=== PATIENT | female | born 1970 | race American Indian/Alaskan Native ===

== ENCOUNTER 2017-06-20 09:24 | Emergency (ER) | payer BC ==
[2017-06-20 09:40] VITALS: O2SAT 98; BMI 32.5
[2017-06-20 10:12] LABS: BASO # 0.02 K/mm3 (0.0-2.0); BASO % 0.4 % (0.0-3.0); EOS # 0.1 (0.0-0.7); EOS % 1.1 % (1.5-5.0); GRAN # 3.45 (1.4-6.5); GRAN % 75.7 % (50.0-68.0); HEMATOCRIT 36.9 % (36.0-48.0); LYMPH # 0.8 (1.2-3.4); LYMPH % 16.7 % (22.0-35.0); MEAN CELL VOLUME 81.3 fl (80.0-105.0); MEAN CORPUSCULAR HEMOGLOBIN 26.2 pg (25.0-35.0); MEAN CORPUSCULAR HGB CONC 32.2 g/dl (31.0-37.0); MEAN PLATELET VOLUME 8.8 fl (7.0-11.0); MONO # 0.3 (0.1-0.6); MONO % 6.1 % (1.0-6.0); RED CELL DISTRIBUTION WIDTH 13.7 % (11.5-14.5); WHITE BLOOD COUNT 4.6 10^3/ul (4.5-11.0)
[2017-06-20 10:24] LABS: ALB/GLOB RATIO 1.2 (1.1-1.8); ALKALINE PHOSPHATASE 51 U/L (38-126); ALT/SGPT 33 U/L (7-56); AST/SGOT 29 U/L (14-36); BILIRUBIN,TOTAL 0.5 mg/dL (0.2-1.3); BLOOD UREA NITROGEN 9 mg/dL (7-21); CALCIUM 9.5 mg/dL (8.4-10.5); CARBON DIOXIDE 31 mmol/L (21-33); CHLORIDE 101 mmol/L (98-107); GFR AFRICAN-AMERICAN > 60; GLUCOSE,RANDOM 114 mg/dL (70-110); POTASSIUM 3.5 mmol/L (3.6-5.0); SODIUM 143 mmol/L (132-148); TOTAL PROTEIN 8.2 g/dL (5.8-8.3)
--- NOTE | 2017-06-20 10:51 | ED PDOC ---
Arrival/HPI - General Chief Complaint: Cough, Cold, Congestion Time Seen by Provider: 06/20/17 09:28 Historian: Patient - History of Present Illness Narrative History of Present Illness (Text): 06/20/17 10:48 47-year-old female presents today with a 4 day history of cough with green- yellow sputum, subjective fevers and chills at home. Sore throat and nasal congestion. Patient denies chest pain or shortness of breath. Patient states she does have some right-sided rib pain only with cough. No medications have been taken for pain at home. She denies any sick contacts at home. She denies abdominal pain. No nausea or vomiting. Denies headaches or dizziness. No other complaints Time/Duration: Other (4 days) Symptom Onset: Gradual Symptom Course: Worsening Quality: Unable to Describe Severity Level: 4 Past Medical History - Provider Review Nursing Documentation Reviewed: Yes - Travel History Have you recently traveled outside [place] w/in the past 3 mons?: No - Infectious Disease Hx of Infectious Diseases: None - Tetanus Immunization Tetanus Immunization: Unknown - Cardiac Hx Cardiac Disorders: Yes Hx Hypertension: Yes - Pulmonary Hx Respiratory Disorders: No - Neurological Hx Neurological Disorder: No - HEENT Hx HEENT Disorder: No - Renal Hx Renal Disorder: No - Endocrine/Metabolic Hx Endocrine Disorders: Yes Hx Diabetes Mellitus Type 2: Yes - Hematological/Oncological Hx Blood Disorders: No - Integumentary Hx Dermatological Disorder: No - Musculoskeletal/Rheumatological Hx Musculoskeletal Disorders: No Hx Falls: No - Gastrointestinal Hx Gastrointestinal Disorders: No - Genitourinary/Gynecological Hx Genitourinary Disorders: No - Psychiatric Hx Psychophysiologic Disorder: No Hx Depression: No Hx Emotional Abuse: No Hx Physical Abuse: No Hx Substance Use: No - Surgical History Other/Comment: uterine fibroid removal - Anesthesia Hx Anesthesia: No - Suicidal Assessment Feels Threatened In Home Enviroment: No Family/Social History - Physician Review Nursing Documentation Reviewed: Yes Family/Social History: Unknown Family HX Smoking Status: Never Smoked Hx Alcohol Use: No Hx Substance Use: No Allergies/Home Meds Allergies/Adverse Reactions: Allergies No Known Allergies Allergy (Verified 11/20/12 11:32) Home Medications: Home Meds Medication Instructions Recorded Confirmed Amlodipine Besylate [Norvasc] 10 mg PO DAILY 11/20/12 01/15/17 Metoprolol Tartrate 100 mg PO BID 11/20/12 01/15/17 hydroCHLOROthiazide [Microzide] 12.5 mg PO DAILY 02/12/14 01/15/17 Aspirin [Aspirin Chewable] 81 mg PO DAILY 01/15/17 01/15/17 MetFORMIN [glucoPHAGE] 1,000 mg PO BID 01/15/17 01/15/17 glyBURIDE [Micronase] 5 mg PO BID 01/15/17 01/15/17 Review of Systems - Review of Systems Constitutional: Fatigue, Fevers ENT: Sore Throat, Sinus Congestion Respiratory: Sputum. absent: SOB, Cough Cardiovascular: absent: Chest Pain, Palpitations Gastrointestinal: absent: Abdominal Pain, Nausea, Vomiting Genitourinary Female: absent: Dysuria Musculoskeletal: absent: Arthralgias Skin: absent: Rash, Pruritis Neurological: absent: Headache, Dizziness Psychiatric: absent: Anxiety, Depression, Suicidal Ideation Physical Exam Vital Signs Reviewed: Yes Vital Signs Temp Pulse Resp BP Pulse Ox 06/20/17 15:50 65 18 145/69 98 06/20/17 14:16 67 18 148/71 98 06/20/17 12:41 98.7 F 69 18 155/69 H 98 06/20/17 11:04 75 18 158/71 H 98 06/20/17 09:31 100.0 F H 88 20 164/76 H 98 Temperature: Febrile Blood Pressure: Hypertensive Pulse: Regular Respiratory Rate: Normal Appearance: Positive for: Well-Appearing, Non-Toxic, Comfortable Pain Distress: None Mental Status: Positive for: Alert and Oriented X 3 Finger Stick Blood Glucose: 92 - Systems Exam Head: Present: Atraumatic Conjunctiva: Present: Normal Ears: Present: Normal, NORMAL TM Mouth: Present: Moist Mucous Membranes Pharnyx: Present: Normal. No: ERYTHEMA, EXUDATE Nose (External): Present: Atraumatic Nose (Internal): Present: Normal Inspection Neck: Present: Normal Range of Motion, Trachea Midline. No: Meningeal Signs, Lymphadenopathy Respiratory/Chest: Present: Good Air Exchange, Rhonchi. No: Clear to Auscultation, Respiratory Distress, Accessory Muscle Use, Wheezes, Retracting, Tachypneic, Tender to Palpation Cardiovascular: Present: Regular Rate and Rhythm, Normal S1, S2. No: Murmurs Abdomen: No: Tenderness, Distention, Rebound, Guarding Back: Present: Normal Inspection Upper Extremity: Present: Normal Inspection Lower Extremity: Present: Normal Inspection Neurological: Present: GCS=15, Speech Normal Skin: Present: Warm, Dry, Normal Color. No: Rashes Psychiatric: Present: Alert, Oriented x 3 Medical Decision Making ED Course and Treatment: 06/20/17 10:51 47yr old female with cough, sore throat, nasal congestion and fevers x 4 days. febrile in er; tylenol given for fever reduction cbc; wnl cmp; k; 3.5 rapid flu; negative rapid strep; negative cxr; FINDINGS: LUNGS: There is peribronchial thickening. There is a perihilar infiltrate on the left. Findings consistent with bronchitis and pneumonia. PLEURA: No significant pleural effusion identified. No pneumothorax apparent. CARDIOVASCULAR: Normal. OSSEOUS STRUCTURES: No significant abnormalities. VISUALIZED UPPER ABDOMEN: Normal. OTHER FINDINGS: None. IMPRESSION: There is peribronchial thickening. There is a perihilar infiltrate on the left. Findings consistent with bronchitis and pneumonia. 06/20/17 15:52 pt is non toxic well appearing;s table vitals. feeling much better. wants to go home. pt started on dose of IV rocephin and zithromax. pt with stable vitals. with PNA on cxr. feeling better. speaking in full sentences. will trial out patient abx. will d/c home with levaquin. close f/u with PMD. discussed all results with patient in depth; advised levaquin daily x 7 days. advised increased fluids. f/u with PMD within the next 2 days. advised immediate return if symptoms worsen, persist or if new symptoms develop. spoke with dr. ann; discussed case in depth; pt is to call tomorrow to schedule appointment for f/u on sunday. Patient verbalizes understanding of discharge instructions and need for immediate followup. all aspects of this case were discussed the attending of record. impression: pneumonia, bronchitis motrin every 6 hours as needed for pain/fever reduction albuterol; 2 puffs every 4-6 hours as needed for cough. Phenergan with codeine 1 teaspoon every 6 hours as needed for cough: May cause drowsiness levaquin daily x 7 days increase fluids follow up with the primary care physician within the next 2 days. return immediately if symptoms worsen,persist or if new symptoms develop. - Lab Interpretations Lab Results: 06/20/17 09:55 06/20/17 09:55 Lab Results 06/20/17 10:13: POC Glucose (mg/dL) 92 06/20/17 09:55: WBC 4.6, RBC 4.54, Hgb 11.9 L, Hct 36.9, MCV 81.3, MCH 26.2, MCHC 32.2, RDW 13.7, Plt Count 194, MPV 8.8, Gran % 75.7 H, Lymph % (Auto) 16.7 L, [place] % (Auto) 6.1 H, Eos % (Auto) 1.1 L, Baso % (Auto) 0.4, Gran # 3.45, Lymph # 0.8 L, [place] # 0.3, Eos # 0.1, Baso # 0.02 06/20/17 09:55: Sodium 143, Potassium 3.5 L, Chloride 101, Carbon Dioxide 31, Anion Gap 15, BUN 9, Creatinine 1.0, Est GFR ( Amer) > 60, Est GFR (Non- Af Amer) 59, Random Glucose 114 H, Calcium 9.5, Total Bilirubin 0.5, AST 29, ALT 33, Alkaline Phosphatase 51, Total Protein 8.2, Albumin 4.4, Globulin 3.8, Albumin/Globulin Ratio 1.2 06/20/17 09:55: Influenza Typ A,B (EIA) Negative for flu a/b, Grp A Beta Strep Ag Negative - RAD Interpretation Radiology Orders: 06/20/17 09:37 CHEST TWO VIEWS (PA/LAT) [RAD] Stat - Medication Orders Current Medication Orders: Discontinued Medications Acetaminophen (Tylenol 325mg Tab) 975 mg PO STAT STA Stop: 06/20/17 10:15 Last Admin: 06/20/17 10:21 Dose: 975 mg Ceftriaxone Sodium (Rocephin 1 Gram Ivpb) 1 gm in 100 mls @ 200 mls/hr IVPB STAT STA PRN Reason: Protocol Stop: 06/20/17 13:15 Last Admin: 06/20/17 13:20 Dose: 200 mls/hr eMAR Start Stop Document 06/20/17 13:20 CNR (Rec: 06/20/17 13:21 CNR [id number]) Intravenous Solution Start Date 06/20/17 Start Time 13:21 End Date 06/20/17 End time 13:51 Total Infusion Time 30 Azithromycin (Zithromax 500mg In Ns) 500 mg in 250 mls @ 167 mls/hr IVPB STAT STA PRN Reason: Protocol Stop: 06/20/17 14:15 Last Admin: 06/20/17 14:19 Dose: 167 mls/hr eMAR Start Stop Document 06/20/17 14:19 CNR (Rec: 06/20/17 14:20 CNR [id number]) Intravenous Solution Start Date 06/20/17 Start Time 14:19 End Date 06/20/17 End time 15:49 Total Infusion Time 90 Ibuprofen (Motrin Tab) 600 mg PO STAT STA Stop: 06/20/17 15:10 Last Admin: 06/20/17 15:41 Dose: 600 mg Disposition/Present on Arrival - Present on Arrival Any Indicators Present on Arrival: No History of DVT/PE: No History of Uncontrolled Diabetes: No Urinary Catheter: No History of Decub. Ulcer: No History Surgical Site Infection Following: None - Disposition Have Diagnosis and Disposition been Completed?: Yes Diagnosis: Pneumonia Disposition: HOME/ ROUTINE Disposition Time: 15:57 Patient Plan: Discharge Patient Problems: Current Active Problems Problem Status Onset Pneumonia Acute Condition: GOOD Discharge Instructions (ExitCare): Pneumonia (ED) Additional Instructions: motrin every 6 hours as needed for pain/fever reduction albuterol; 2 puffs every 4-6 hours as needed for cough. Phenergan with codeine 1 teaspoon every 6 hours as needed for cough: May cause drowsiness levaquin daily x 7 days increase fluids follow up with the primary care physician within the next 2 days. return immediately if symptoms worsen,persist or if new symptoms develop. Prescriptions: Albuterol HFA [Ventolin HFA 90 mcg/actuation (8 g)] 2 puff IH [id number] PRN #1 inhaler PRN Reason: Cough Ibuprofen [Motrin] 600 mg PO Q6H PRN #20 tab PRN Reason: pain/fever reduction levoFLOXacin [Levaquin] 750 mg PO DAILY #7 tab Promethazine/Codeine [Codeine/Promethazine 10 MG/5 Ml-6.25 MG/5 Ml] 1 tsp PO Q6H PRN #120 ml PRN Reason: Cough Referrals: Jerry Ann DO [Primary Care Provider] - Follow up with primary Forms: [employer] (Indonesian), WORK NOTE
[2017-06-20 11:04] VITALS: RESP 18
[2017-06-20 12:42] VITALS: TEMP 98.7
[2017-06-20] MEDS ORDERED: Azithromycin 500MG/NS 250ml 500 MG/250 ML BAG IVPB STA (12:46)
[2017-06-20] MEDS ORDERED: cefTRIAXone 1 gm 1 GM/100 ML BAG IVPB STA (12:46)
--- NOTE | 2017-06-20 12:46 | RAD ---
HISTORY: cough/fever COMPARISON: 01/15/2017 TECHNIQUE: Chest PA and lateral FINDINGS: LUNGS: There is peribronchial thickening. There is a perihilar infiltrate on the left. Findings consistent with bronchitis and pneumonia. PLEURA: No significant pleural effusion identified. No pneumothorax apparent. CARDIOVASCULAR: Normal. OSSEOUS STRUCTURES: No significant abnormalities. VISUALIZED UPPER ABDOMEN: Normal. OTHER FINDINGS: None. IMPRESSION: There is peribronchial thickening. There is a perihilar infiltrate on the left. Findings consistent with bronchitis and pneumonia.
[2017-06-20 16:04] VITALS: BP 145/69; PULSE 65
== END 2017-06-20 16:35 | disposition home or self-care (01) ==
LOC: ED 09:24
DX: J18.9 Pneumonia, unspecified organism (principal); I10 Essential (primary) hypertension; E11.9 Type 2 diabetes mellitus without complications; Z79.84 Long term (current) use of oral hypoglycemic drugs
CPT/HCPCS: 71020; 80053; 82948; 85025; 87040; 87070; 87430; 87804; 96365; 96367; 99284; J0456

== ENCOUNTER 2018-12-08 08:08 | Emergency (ER) | payer BC ==
[2018-12-08 08:08] VITALS: BMI 32.5
[2018-12-08] MEDS ORDERED: Sodium Chloride 0.9% 1,000 ML IV ONE (08:38)
--- NOTE | 2018-12-08 08:47 | ED PDOC ---
Arrival/HPI - General Chief Complaint: Cough, Cold, Congestion Time Seen by Provider: 12/08/18 08:28 Historian: Patient - History of Present Illness Narrative History of Present Illness (Text): 12/08/18 08:44 A 48 year old female, whose past medical history includes diabetes type 2 and hypertension, had recent treatment for questionable pneumonia and completed 1 week prior with Leviquin, presents to the emergency department complaining of productive cough with yellowish sputum, diffuse body aches, chills, and fever starting 5 days prior. Patient reports temperature was 102 last night. States symptoms began after sitting next to an 8-year-old child with strep throat. Patient notes also experiencing sore throat 5d prior with no difficulty swallowing or change in voice which has since resolved. She mentions having chest tightness 2 days prior, however this symptom has since resolved. Patient denies any chest pain, shortness of breath, nausea, vomiting, vaginal discharge, any urinary symptoms, or any other complaints at this time. PMD: Dr. Garnica Time/Duration: < week (5 days) Past Medical History - Provider Review Nursing Documentation Reviewed: Yes - Infectious Disease Hx of Infectious Diseases: None - Tetanus Immunization Tetanus Immunization: Unknown - Cardiac Hx Cardiac Disorders: Yes Hx Hypertension: Yes - Pulmonary Hx Respiratory Disorders: No - Neurological Hx Neurological Disorder: No - HEENT Hx HEENT Disorder: No - Renal Hx Renal Disorder: No - Endocrine/Metabolic Hx Endocrine Disorders: Yes Hx Diabetes Mellitus Type 2: Yes - Hematological/Oncological Hx Blood Disorders: No - Integumentary Hx Dermatological Disorder: No - Musculoskeletal/Rheumatological Hx Musculoskeletal Disorders: No Hx Falls: No - Gastrointestinal Hx Gastrointestinal Disorders: No - Genitourinary/Gynecological Hx Genitourinary Disorders: No - Psychiatric Hx Psychophysiologic Disorder: No Hx Depression: No Hx Emotional Abuse: No Hx Physical Abuse: No Hx Substance Use: No - Surgical History Other/Comment: uterine fibroid removal - Anesthesia Hx Anesthesia: No - Suicidal Assessment Feels Threatened In Home Enviroment: No Family/Social History - Physician Review Nursing Documentation Reviewed: Yes Family/Social History: No Known Family HX Smoking Status: Never Smoked Hx Alcohol Use: No Hx Substance Use: No Allergies/Home Meds Allergies/Adverse Reactions: Allergies No Known Allergies Allergy (Verified 12/08/18 08:27) Home Medications: Home Meds Medication Instructions Recorded Confirmed Amlodipine Besylate [Norvasc] 10 mg PO DAILY 11/20/12 01/15/17 Metoprolol Tartrate 100 mg PO BID 11/20/12 01/15/17 hydroCHLOROthiazide [Microzide] 12.5 mg PO DAILY 02/12/14 01/15/17 Aspirin [Aspirin Chewable] 81 mg PO DAILY 01/15/17 01/15/17 MetFORMIN [glucoPHAGE] 1,000 mg PO BID 01/15/17 01/15/17 glyBURIDE [Micronase] 5 mg PO BID 01/15/17 01/15/17 Review of Systems - Physician Review All systems were reviewed & negative as marked: Yes - Review of Systems Constitutional: Fevers, Night Sweats (chills) Eyes: absent: Vision Changes, Photophobia, Eye Pain ENT: Sore Throat (no difficulty swallowing (sore throat resolved 3d prior)). absent: Hearing Changes, Tinnitus, TMJ Pain, Voice Changes, Rhinorrhea, Epistaxis, Sinus Congestion, Other (hemoptysis) Respiratory: Cough (productive), Sputum (yellowish in color). absent: SOB Cardiovascular: absent: Chest Pain, Palpitations, Edema, Calf Pain, OLIVEROS, Syncope Gastrointestinal: absent: Abdominal Pain, Stool Changes, Constipation, Diarrhea, Nausea, Vomiting Genitourinary Female: absent: Dysuria, Frequency, Hematuria, Urine Output Changes, Vaginal Discharge Musculoskeletal: Myalgias. absent: Arthralgias, Back Pain, Neck Pain, Joint Swelling Skin: absent: Rash, Pruritis Neurological: absent: Headache, Dizziness, Focal Weakness, Gait Changes Endocrine: absent: Diaphoresis, Polyuria Hemo/Lymphatic: absent: Adenopathy, Easy Bleeding, Easy Bruising Psychiatric: absent: Anxiety, Depression, Suicidal Ideation Physical Exam Vital Signs Reviewed: Yes Vital Signs Temp Pulse Resp BP Pulse Ox 12/08/18 08:18 98.9 F 72 19 155/95 H 97 Temperature: Afebrile Blood Pressure: Normal Pulse: Regular Respiratory Rate: Normal Appearance: Positive for: Well-Appearing, Non-Toxic, Comfortable Pain Distress: None Mental Status: Positive for: Alert and Oriented X 3 - Systems Exam Head: Present: Atraumatic, Normocephalic Pupils: Present: PERRL. No: Sluggish Extroacular Muscles: Present: EOMI. No: Gaze Palsy Conjunctiva: Present: Normal. No: Injected Ears: Present: Normal, NORMAL TM, Normal Canal. No: Erythema, TM Bulging Mouth: Present: Moist Mucous Membranes Pharnyx: Present: Normal. No: ERYTHEMA, EXUDATE, TONSILS ENLARGED, Uvular Deviation, Other (no "hot potato" voice noted) Nose (External): Present: Atraumatic Nose (Internal): Present: Normal Inspection, No Active Bleeding. No: Purulent Mucous, Septal Deviation, Septal Hematoma, Epistaxis Neck: Present: Normal Range of Motion, Trachea Midline. No: Meningeal Signs, MIDLINE TENDERNESS, JVD, Lymphadenopathy, Bruit Respiratory/Chest: Present: Clear to Auscultation, Good Air Exchange. No: Respiratory Distress, Accessory Muscle Use, Wheezes, Decreased Breath Sounds, Rales Cardiovascular: Present: Regular Rate and Rhythm, Normal S1, S2. No: Murmurs Abdomen: Present: Normal Bowel Sounds. No: Tenderness, Distention, Peritoneal Signs, Rebound, Guarding, McBurney's Point Tender, Rovsing's Sign Present Back: Present: Normal Inspection. No: CVA Tenderness, Midline Tenderness Upper Extremity: Present: Normal Inspection, Normal ROM, NORMAL PULSES, Neurovascularly Intact. No: Cyanosis, Edema, Tenderness, Swelling, Erythema Lower Extremity: Present: Normal Inspection, NORMAL PULSES, Normal ROM, Neurovascularly Intact. No: Edema, CALF TENDERNESS, Erythema Neurological: Present: GCS=15, CN II-XII Intact, Speech Normal Skin: Present: Warm, Dry, Normal Color. No: Rashes Psychiatric: Present: Alert, Oriented x 3, Normal Insight, Normal Concentration Medical Decision Making ED Course and Treatment: 12/08/18 08:49 Impression: 48 year old female with productive cough with yellowish sputum, fever, chills, diffuse body aches, and sore throat. Likely Viral URI VS. bronchitis vs pna. Given recent hx of ?pna rx with levoquin will seek blood cultures, xray and labs. No urinary complaints or back pain. No current sore throat or hx of dysphagia / odynophagia or hot potatoe voice. Orophyrangeal exam unremarkable. No anterior / cervical chain lymphadenopathy and no hemoptysis per pt. Chest tightness 2d prior, described more as body aches, no crushing chest pain or sob. No orthopnea or PND or leg swelling. Differential Diagnosis included but are not limited to: Bronchitis vs. Strep Throat vs. Pneumonia Plan: -- EKG -- Venous Blood Gas -- Chest X-ray -- Labs -- IV Fluids -- Blood Culture -- Urinalysis -- Rapid Strep Test -- POC Urine Pregnacy Test -- Reassess and disposition Progress Notes: EKG: Ordered, reviewed, and independently interpreted the EKG. Rate : 65 BPM Rhythm : NSR Interpretation : No STEMI. Comparison : No previous EKG for comparison. 12/08/18 10:40 labs largely unremarkable CXR unremarkable on my read likely viral URI: cold like symptoms / bronchitis pt notes diffuse pain improved, Pt in NAD, lungs remain CTA and voice remains normal. clear for d/c home with return indications and f/u pt agreeable to plan. - Lab Interpretations I have reviewed the lab results: Yes - RAD Interpretation Radiology Orders: 12/08/18 08:38 CHEST TWO VIEWS (PA/LAT) [RAD] Stat - Medication Orders Current Medication Orders: Sodium Chloride (Sodium Chloride 0.9%) 1,000 mls @ 250 mls/hr IV .Q4H ONE Stop: 12/08/18 12:37 - Scribe Statement The provider has reviewed the documentation as recorded by the Lisa aBnks Provider Scribe Attestation: All medical record entries made by the Scribe were at my direction and personally dictated by me. I have reviewed the chart and agree that the record accurately reflects my personal performance of the history, physical exam, medical decision making, and the department course for this patient. I have also personally directed, reviewed, and agree with the discharge instructions and disposition. Disposition/Present on Arrival - Present on Arrival Any Indicators Present on Arrival: No History of DVT/PE: No History of Uncontrolled Diabetes: No Urinary Catheter: No History of Decub. Ulcer: No History Surgical Site Infection Following: None - Disposition Have Diagnosis and Disposition been Completed?: Yes Diagnosis: Bronchitis, Viral URI Disposition: HOME/ ROUTINE Disposition Time: 10:44 Condition: STABLE Discharge Instructions (ExitCare): Acute Bronchitis, Adult (DC), Viral Upper Respiratory Infection, Adult (DC) Additional Instructions: ABELARDO MANZANARES, thank you for letting us take care of you today. Your provider was Paul Becerra and you were treated for fever / body ache. The emergency medical care you received today was directed at your acute symptoms. If you were prescribed any medication, please fill it and take as directed. It may take several days for your symptoms to resolve. Return to the Emergency Department if your symptoms worsen, do not improve, or if you have any other problems. Please contact your doctor or call one of the physicians/clinics you have been referred to that are listed on the Patient Visit Information form that is included in your discharge packet. Bring any paperwork you were given at discharge with you along with any medications you are taking to your follow up visit. Our treatment cannot replace ongoing medical care by a primary care provider outside of the emergency department. Thank you for allowing the [facility] team to be part of your care today. If you had an X-Ray or CT scan: A Radiologist will review the ED reading if any change in treatment is needed we will contact you. If you had a blood, urine, or wound culture: It will take several days for the results, if any change in treatment is needed we will contact you. If you had an STI test: It will take 48 hours for the results. Please call after 1 week if you have not heard back. Prescriptions: Albuterol HFA [Ventolin HFA 90 mcg/actuation (8 g)] 2 puff IH [id number] PRN 60 Days #1 puff PRN Reason: Shortness Of Breath Azithromycin [Z-Jude] 250 mg PO DAILY #6 tab Referrals: Jerry Garnica DO [Primary Care Provider] - Follow up with primary Forms: [employer] (Georgian)
[2018-12-08 09:15] LABS: BASO # 0.02 K/mm3 (0.0-2.0); BASO % 0.4 % (0.0-3.0); EOS % 0.6 % (1.5-5.0); HEMOGLOBIN 11.5 g/dL (12.0-16.0); LYMPH # 1.8 (1.2-3.4); LYMPH % 35.9 % (22.0-35.0); MEAN CELL VOLUME 79.7 fl (80.0-105.0); MEAN CORPUSCULAR HEMOGLOBIN 25.1 pg (25.0-35.0); MEAN CORPUSCULAR HGB CONC 31.5 g/dl (31.0-37.0); MEAN PLATELET VOLUME 9.4 fl (7.0-11.0); MONO # 0.4 (0.1-0.6); RBC 4.58 10^6/uL (3.5-6.1); WHITE BLOOD COUNT 5.1 10^3/uL (4.5-11.0)
[2018-12-08 09:17] LABS: PH,URINE 7.5 (4.7-8.0); URINE BILIRUBIN NEGATIVE (NEGATIVE); URINE BLOOD TRACE-INTACT (NEGATIVE); URINE GLUCOSE (UA) NEGATIVE (NEGATIVE); URINE LEUKOCYTE ESTERASE TRACE Leu/uL (NEGATIVE); URINE PROTEIN 30 mg/dL (<30 mg/dL); URINE UROBILINOGEN 0.2 E.U./dL (<1 E.U./dL)
[2018-12-08 09:18] LABS: URINE APPEARANCE CLEAR (CLEAR); URINE COLOR YELLOW (YELLOW)
[2018-12-08 09:29] LABS: ALB/GLOB RATIO 1.2 (1.1-1.8); ALBUMIN 4.4 g/dL (3.0-4.8); ALT/SGPT 25 U/L (7-56); AST/SGOT 21 U/L (14-36); BLOOD UREA NITROGEN 8 mg/dL (7-21); CALCIUM 9.2 mg/dL (8.4-10.5); GFR NON-AFRICAN AMERICAN > 60
[2018-12-08 09:31] LABS: URINE BACTERIA FEW /hpf; URINE RBC 0 - 2 /hpf (0-2)
[2018-12-08 09:40] LABS: TROPONIN I < 0.01 ng/mL
[2018-12-08 10:58] VITALS: BP 142/70; PULSE 78; RESP 18; TEMP 98.3; O2SAT 99
--- NOTE | 2018-12-08 11:15 | RAD ---
Date of service: 12/08/2018 HISTORY: cough, sputum ?PNA COMPARISON: Chest radiograph dated 06/26/2017. TECHNIQUE: Chest PA and lateral views FINDINGS: LUNGS: No active pulmonary disease. PLEURA: No significant pleural effusion identified. No pneumothorax apparent. CARDIOVASCULAR: Aortic atherosclerotic calcifications. Cardiomediastinal silhouette stably enlarged. OSSEOUS STRUCTURES: Unchanged. VISUALIZED UPPER ABDOMEN: Normal. OTHER FINDINGS: None. IMPRESSION: No active disease.
--- NOTE | 2018-12-08 19:19 | CARD ---
APPROVED REPORT Date of service: 12/08/2018 EKG Measurement Heart [id number] <Conclusion> Normal sinus rhythm Normal ECG
== END 2018-12-08 10:58 | disposition home or self-care (01) ==
LOC: ED 08:08
DX: J40 Bronchitis, not specified as acute or chronic (principal); J06.9 Acute upper respiratory infection, unspecified; E11.9 Type 2 diabetes mellitus without complications; I10 Essential (primary) hypertension
CPT/HCPCS: 71046; 80053; 81001; 81025; 82550; 84484; 85025; 87040; 87070; 87086; 87430; 93005; 99282; J7030